=== PATIENT | female | born 1970 | race Caucasian/White ===

== ENCOUNTER 2024-07-17 05:10 | Observation (INO) ==
--- NOTE | 2024-06-22 15:08 | PAT Medication Instructions ---
Medication Instructions Date of Service June 22, 2024 Home Medications levothyroxine 88 mcg tablet (Levoxyl) 88 mcg PO QAM lorazepam 1 mg tablet (Ativan) 1 mg PO DAILY PRN anxiety Take morning of surgery With a small sip of water, OTHERWISE NOTHING TO EAT OR DRINK AFTER MIDNIGHT: levothyroxine 88 mcg tablet (Levoxyl) 88 mcg PO QAM lorazepam 1 mg tablet (Ativan) 1 mg PO DAILY PRN anxiety (if needed) Take evening before surgery lorazepam 1 mg tablet (Ativan) 1 mg PO DAILY PRN anxiety (if needed) Other Notes If you have any questions please call us at [phone] or [phone] or [phone] or [phone]
--- NOTE | 2024-07-03 10:16 | Anesthesiology Consultation ---
Date of Service July 03, 2024 Assessment & Plan (1) Encounter for pre-operative examination: - Infectious disease screening: Per assessment on 07/03/24: No known recent infectious disease contacts or current infectious disease symptoms. - Outpatient joint assessment: Pt currently scheduled for inpatient pathway. If surgeon requests review for outpatient joint pathway, patient is an acceptable candidate for outpatient joint program from anesthesia standpoint pending surgeon's office assessment that patient is motivated, has good support and completes [facility] Day [facility] Program preop requirements. Chart Review Chart Review: Acceptable Risk for Surgery and Patient seen in Pre Admission Testing Teaching & Discussion Pre-Anesthesia Teaching/Discussion Notes: Instructed NPO after midnight before surgery,except medications with 15 cc of water. Medication instructions provided according to the PAT guidelines. History Surgery Operation Date: 07/17/24 08:50 Proposed Procedures p Right Total Hip Arthroplasty - Ilia Rucker MD Height/Weight Height: 5 ft 3 in Weight: 73.3 kg Allergies Allergy/AdvReac Type Severity Reaction Status Date / Time Penicillins Allergy Intermediate Hives Verified 04/26/24 14:33 Medications Home Medications Medication Instructions Recorded Confirmed Last Taken levothyroxine 88 mcg tablet 88 mcg PO QAM 04/26/24 06/21/24 Unknown (Levoxyl) lorazepam 1 mg tablet (Ativan) 1 mg PO DAILY PRN anxiety 04/26/24 06/21/24 Unknown Past Medical History Medical History Anxiety Arthritis Hearing loss bilat hearing aids Hx of varicose veins Hypothyroidism Exercise / Class Metabolic Activity II 4-5 Yardwork/Stairs/Walk up hill (one FS: No CP, no SOB) Past Family History Family History Other No family history of adverse response to anesthesia Past Surgical History Surgical History History of esophageal dilatation 20 years ago Hx of colonoscopy Hx of esophagogastroduodenoscopy Hx of wisdom tooth extraction Past Anesthesia History No Hx of Anesthesia Complications and No Family Hx of Anesthesia Complications History of PONV No Hx of PONV and No Hx of Motion Sickness Social History Smoking Status: Former smoker Do You Dip or Chew Tobacco: No Smoking End Date: Quit 3-4 mos ago (hx tobacco use x approximately 40 years) Hx Alcohol Use: Yes alcohol intake frequency: a few times a week Hx Substance Use: Yes substance use type: marijuana (Daily marijuana edibles, occasional inhalation - advised protocol) Last Used Substance Other:: 06/20/24 Review of Systems Patient denies chest pain, shortness of breath, dyspnea on exertion, fever, chills, cough, wheezing. Physical Exam Vital Signs BP 150/87 P 76 TEMP 97.8 SP02 95%RA RESP 16 Physical Mildly decreased cervical extension range of motion. Full TMJ range of motion. TMD > 3.5 finger breaths Mallampati Score II Dentition: intact Lungs: clear throughout to auscultation Cardiac: regular rate and rhythm, no murmurs noted Spine: normal Carotid arteries: negative bruit Extremities: no LE edema Lab Results Anesthesia Preop Results Results Anesthesia Widget: WBC 7.44 K/ul (4.8-10.8) 07/03/24 Hgb 14.5 g/dl (12.0-16.0) 07/03/24 Hct 42.2 % (37.0-47.0) 07/03/24 Plt 149 K/uL (130-400) 07/03/24 Na 138 mmol/L (136-145) 07/03/24 K 3.8 mmol/L (3.5-5.1) 07/03/24 Cl 104 mmol/L (98-107) 07/03/24 CO2 27 mmol/L (21-32) 07/03/24 BUN 15 mg/dl (6-23) 07/03/24 Creat 0.70 mg/dl (0.6-1.2) 07/03/24 Glucose Level 83 mg/dl (70-99(Fasting)) 07/03/24 PT 10.6 Seconds (9.0-12.0) 07/03/24 PTT 29 Seconds (21-31) 07/03/24 INR 1.0 (0.9-1.1) 07/03/24 Blood Type O Positive 07/03/24 Antibody Screen NEGATIVE 07/03/24 Testing Electrocardiogram Date: 07/03/24 NSR with sinus arrhythmia at 67bpm. Chest X-Ray Date: 07/03/24 FINDINGS: Cardiomediastinal and hilar silhouettes are within normal limits. No pneumothorax, pleural effusion or airspace consolidation. Bones of the chest appear grossly intact. Degenerative changes of the shoulders and spine. IMPRESSION: No acute process of the chest.
--- NOTE | 2024-07-13 18:31 | History & Physical Report ---
Date of Service July 13, 2024 Assessment & Plan (1) Bilateral hip joint arthritis: 54-year-old female with advanced bilateral hip arthritis. She has failed conservative measures. She has been using really undesirable management techniques to try and manage her pain including alcohol and alternative medi cines. She is ready to have her hip fixed. Plan we talked about treatment plans. We can proceed with a right total hip replacement. I emphasized the importance of not using alcohol and other alter kaibab medicines at all in particular during the rehab phase. Worker proceed with right total hip replacement to the risks Mente this procedure explained include but not limited to a DVT PE infection neurological and vascular bleeding palm pain limb range of motion this is fairly her symptoms incomplete relief of symptoms excetra. Patient understands and desires to proceed. Informed consent was obtained. Will get a use aspirin for DVT prophylaxis. She is planned to be discharged to go home. Her sisters can assist in her care. She is likely jocelyn need her left hip done in the [id number] future. History of Present Illness Chief Complaint: . Bilateral hip pain discomfort and stiffness right side greater than the left. Primary Care Provider: Stanislaw Dover . The patient is a 54-year-old female whose had a several year history of increasing bilateral hip pain discomfort right side greater than the left. She has been just putting up with the pain for the most part. She has used alternative medicines and alcohol somewhat to manage her pain unfortunately. Pain has become more debilitating. She describes groin pain thigh pain. The right side is worse than the left. She is now like to proceed with right total hip replacement. Allergies Allergy/AdvReac Type Severity Reaction Status Date / Time Penicillins Allergy Intermediate Hives Verified 04/26/24 14:33 Home Medications Medication Instructions Recorded Confirmed Type levothyroxine 88 mcg tablet 88 mcg PO QAM 04/26/24 06/21/24 History (Levoxyl) lorazepam 1 mg tablet (Ativan) 1 mg PO DAILY PRN anxiety 04/26/24 06/21/24 History Past Med/Surg History Problem List Encounter for pre-operative examination Bilateral hip joint arthritis Medical History Hearing loss bilat hearing aids Arthritis Anxiety Hypothyroidism Hx of varicose veins Surgical History History of esophageal dilatation 20 years ago Hx of wisdom tooth extraction Hx of esophagogastroduodenoscopy Hx of colonoscopy Family History Other No family history of adverse response to anesthesia Social History Smoking Status: Former smoker Tobacco Type: Cigarettes Second Hand Exposure: No; Do You Dip or Chew Tobacco: No; Hx Alcohol Use: Yes Hx Substance Use: Yes Last Used Substance Other:: 06/20/24 Preferred Language: Khmer Communication Ability: Effective Dark Room Attendant Required: No Beliefs That Will Affect Care: None Current Living Situation: Spouse Feels Safe at Home: Yes Assistive Devices: Glasses and Hearing Aid - Bilateral Review of Systems All systems reviewed & are unremarkable except as noted in HPI & below. Physical Exam . Physical examination was a pleasant middle-age female. She looks to be in reasonably good health. Examination of both [id number]-fos patient walks with a bit of a waddling gait. She clearly walks like she got hip pain. Her leg marilu gths are pretty equal. She got stiffness in both hips and pain with attempted internal rotation. She is neurologically intact. No knee effusions. No particular pain with straight leg raising. Constitutional WD/WN, vitals as above Neck trachea midline, no thyromegaly Respiratory normal respiratory effort, lungs clear to auscultation Cardiovascular RRR, no murmur, no edema Gastrointestinal (Abdomen) normal bowel sounds, soft, nontender, no hepatosplenomegaly Results & Data Results & Data Laboratory Results . Diagnostic Findings . X-rays of both hips reveal advanced bilateral hip DJD right side a bit worse than the left.*Complete loss of the superior joint space. She got osteophytes of the femoral head and acetabulum. The right side is a bit worse than the left. PG Care Time/CCT Total # of Minutes Spent Total Time Spent with Patient: Total time spent is greater than 50% in coordination of care (as documented) at patient's floor/unit and/or counseling patient: Coding Level of Care Code None Diagnoses Bilateral hip joint arthritis M16.0
[~2024-07-17 05:10] MED LIST: ALLERGY Noted to ORDERED Medication SCH
[2024-07-17] MEDS: LR 60ML/HR IV SCH (05:49)
[2024-07-17] MEDS: FAMOTIDINE 20 MG TAB PO SCH (05:49)
[2024-07-17] MEDS: METOCLOPRAMIDE HCL 10 MG TABLET PO SCH (05:49)
[2024-07-17] MEDS: CeleBREX 200 MG CAP PO SCH (05:49)
[2024-07-17] MEDS: ACETAMINOPHEN 500 MG TAB PO SCH ×2 (05:49→15:46)
[2024-07-17] MEDS: LR 500ML BOLUS, THEN 15ML/HR IV SCH (05:58)
[2024-07-17] MEDS ORDERED: ROPIVACAINE 0.5% 5 MG/ML 30 ML VIAL ONE (06:15)
[2024-07-17] MEDS ORDERED: fentaNYL citrate PF 100 MCG/2 ML VIAL ONE (06:19)
[2024-07-17] MEDS ORDERED: MIDAZOLAM HCL 1 MG/ML 2ML VIAL ONE ×2 (06:19)
[2024-07-17] MEDS ORDERED: DexMEDEtomidine HCL IV 100 MCG/ML VIAL IV ONE (06:20)
[2024-07-17] MEDS ORDERED: MoRPHine SULFATE PF 1 MG/ML 10 ML AMP/VIAL ONE (06:24)
[2024-07-17] MEDS ORDERED: LIDOCAINE 2% 2 ML VIAL/AMP(20MG/ML) INFIL ONE (06:26)
[2024-07-17] MEDS ORDERED: PROPOFOL IV EMULSION 10 MG/ML 20 ML VIAL IV ONE (06:26)
[2024-07-17] MEDS ORDERED: HYDROmorphone INJ 1 MG/ML SYRINGE IV PRN (06:38)
[2024-07-17] MEDS ORDERED: fentaNYL citrate PF 100 MCG/2 ML VIAL IV PRN (06:38)
[2024-07-17] MEDS ORDERED: ePHEDrine sulfate 50 MG/ML AMP IV PRN ×2 (06:38→06:51)
[2024-07-17] MEDS ORDERED: ATROPINE SULFATE 0.1 MG/ML 10ML SYR IV PRN (06:38)
--- NOTE | 2024-07-17 06:41 | History & Physical Bridge Note ---
Date of Service July 17, 2024 History & Physical Bridge Note I have examined the patient, reviewed the History & Physical and in the interval since the performance of the History & Physical I have noted the following changes of clinical significance: no changes noted
[2024-07-17] MEDS: TRANEXAMIC ACID 1,000 MG **IV Pre-op IV SCH (06:44)
[2024-07-17] MEDS ORDERED: NALOXONE HCL 0.4 MG/1 ML VIAL/CARP IV PRN ×2 (06:51→10:12)
[2024-07-17] MEDS ORDERED: NALBUPHINE HCL INJ 10 MG/ML AMP IV PRN (06:51)
[2024-07-17] MEDS ORDERED: LACTATED RINGER'S 500 ML IV PRN (06:51)
[2024-07-17] MEDS ORDERED: NALOXONE HCL 0.08 MG in SYRINGE 1.8 ML IV PRN (06:51)
[2024-07-17] MEDS ORDERED: NALOXONE HCL 1 MG in SODIUM CHLORIDE 0.9% 1,000 ML IV PRN (06:51)
[2024-07-17] MEDS ORDERED: MoRPHine SULFATE 2 MG/ML CARP IV PRN (06:51)
[2024-07-17] MEDS ORDERED: KETOROLAC 30 MG/ML VIAL IV PRN (06:51)
[2024-07-17] MEDS ORDERED: diphenhydrAMINE 50 MG/ML VIAL IV PRN (06:51)
[2024-07-17] MEDS ORDERED: HYDROmorphone INJ 0.5 MG/0.5 ML SYR IV PRN (06:51)
[2024-07-17] MEDS: ceFAZolin 2000MG 2,000 MG/15 ML SYR IV SCH (06:59)
[2024-07-17] MEDS ORDERED: NO NARCOTICS OR SEDATIVES SCH (07:00)
[2024-07-17] MEDS ORDERED: DC INTRASPINAL MORPHINE SCH (07:00)
[2024-07-17] MEDS ORDERED: ePHEDrine sulfate 50 MG/ML AMP ONE (07:29)
[2024-07-17] MEDS: BUPIVACAINE/EPINEPHRINE 0.5% MPF 1:200,000 30 ML VIAL ONE (07:53)
--- NOTE | 2024-07-17 08:32 | Operative Report ---
PG Post Operative Report Pre & Post Diagnosis Operation Date: 07/17/24 07:00 Pre-Op Diagnosis: Right Hip Osteoarthritis Post-Op Diagnosis: Right Hip Osteoarthritis I identified the patient and participated in the time-out.: Yes Procedure Operation Date: 07/17/24 07:00 Actual Procedures p Right Total Hip Arthroplasty, Uncemented(Right) - Ilia Rucker MD Surgeon Ilia Rucker MD Florist Designer Francesco Leyva PA-C Estimated Blood Loss 200 Findings Consistent with Post-Op Diagnosis Specimens Right femoral head sent for pathology. Anesthesia Type Spinal MAC Complications none Disposition Accompanied Patient To Recovery: No Indications Patient is a 54-year-old female has had a several year history of increasing bilateral hip pain discomfort describes gotten worse over time. She has been through extensive conservative treatment just trying to manage this. Has become more unmanageable and more difficult with time. Having severe pain. She is actually sought out alternative management strategies which were unsuccessful. As she is now would like to proceed with total hip arthroplasty. The right side was bothering more than the left. Description of Procedure Operative implants consist of: 1. Biomet G7 size 50 mm acetabular shell. 2. 6.5 cancellous acetabular screws 1 of 35 mm length and 1 of 25 mm length. 3. [place] hole automobile racer. 4. Highly cross-linked polyethylene liner with a 50 mm outer diameter 32 mm inner diameter. 5. DePuy Karaya size 10 KLA femoral stem. 6. +5/32 mm ceramic articular ball. The patient was taken the op room, identified, placed on the operating table in the supine position. All contact areas were appropriately padded. IV antibiotics tried by anesthesia team. A spinal anesthetic had been implemented in the holding area. Bush catheter was placed in sterile fashion. The patient then placed in the left lateral cubitus position. An axillary roll was placed. Distal Birkett position was used for positioning. The right hip and leg were then prepped and draped in usual sterile fashion. A posterolateral approach to the right hip was then performed through a curvilinear incision centered over the greater trochanter. Sharp dissection was carried through subcutaneous tissue down to level the IT band gluteal fascia but the IT band gluteal fascia incised longitudinally in line with skin incision. The underlying greater bursa was excised. The piriformis and external rotators were then taken off the posterior aspect of the hip as a single layer. Great care was taken throughout the procedure protect the sciatic nerve at all times. Hip was internally rotated and dislocated. A femoral neck osteotomy cut was made with Final Cut 10 mm above the lesser trochanter. Femoral head was removed and sent for pathology. The femur was retracted anteriorly. Attention drawn the acetabulum. The acetabular labrum was excised. The pulmonary fat was excised. Sequential reaming the acetabulum was then performed again with size 43 and progressing up to 49. I reamed a little bit with a 50 reamer and then placed a 50 mm cup in about 40 degrees lateral opening and 20 degrees of anteversion. It was fixed with two 6.5 screws. Some anterior osteophytes removed. Trial liner was placed. Attention drawn the femur. The proximal femur then with a [employer] cutter followed by canal finder. I then broached beginning the size 8 and progressed up to a 10. We are able to get the tendon but it was pretty tight. We then trialed the hip. The +5 articular ball provided full stability. I thought we may have length or just a little bit but she has severe arthritis in the other side we will get have to replace that hip in the future. We elected to leg. Just slightly. Hip was fully stable. I would like to place his implants. All trial implants were removed. An apex hole automobile racer was placed. Highly cross-linked polyethylene liner was placed. Due to her young age we elect to use a 32 head in order to maximize her polyethylene and the limiter need for likely revision for poly wear. A size 10 KLA femoral stem was impacted in position. I could not get this the whole way down to the calcar cut was about 4 mm Prall. Did not advance any further and I did not want a risk of fracturing the femur. A +5/32 mm ceramic articular ball was placed. Hip was located once again found to be stable. Once again she was probably a little bit long on this leg compared to the opposite side but she is got pretty severe arthritis in the opposite side. Attention drawn toward closing. The wound was irrigated compels pulsatile lavage solution. I injected locally with 60 cc of half percent Marcaine with epinephrine. The posterior capsule and external rotators then repaired through drill holes in the posterior trochanter with #2 Tycron suture. The IT band gluteal fascia was then closed with #1 PDS suture running fashion the subcutaneous tissues then closed with 2 layers the deep layer #2 Vicryl suture in a buried interrupted fashion the subcutaneous tissues with 2-0 Dexon suture in a buried interrupted fashion. Skin was closed skin alicia. Leg was then cleaned and dried. We used a Prevena VAC dressing due to the fairly thick soft tissue subcutaneous envelope. The patient then transferred to the recovery room in stable condition. Patient tolerated procedure well and no complications. Francesco Leyva, my physician assistant front end manager, was present for the entire procedure. His assistance was essential and required for appropriate patient positioning, prepping and draping, surgical exposure, performing the technical details of the operation, placement the implants, closure of the wound, and placement of the sterile bandage. I attest to the content of the Intraoperative Record and any orders documented therein. Any exceptions are noted below.
--- NOTE | 2024-07-17 08:47 | Anesthesiology Progress Note ---
Date of Service July 17, 2024 Anesthesia Post Procedure Vital Signs Vital Signs: Temp Pulse Pulse Resp BP Pulse Ox O2 Del Method 07/17/24 08:40 80 23 105/52 L 99 Room Air 07/17/24 08:30 79 20 126/67 100 Oxymask 07/17/24 08:24 36.5 C 85 14 120/66 100 Oxymask 07/17/24 05:39 36.9 C 87 20 164/83 H 98 Room Air O2 Flow Rate 07/17/24 08:40 07/17/24 08:30 6 07/17/24 08:24 6 07/17/24 05:39 Pain Intensity Right Hip: Pain Intensity: 10 Transfer of Care Handoff Completed per policy Notes Mental Status: alert / awake / arousable and participated in evaluation Patient Amnestic to Procedure: Yes Nausea / Vomiting: adequately controlled Pain: adequately controlled Airway Patency, RR, SpO2: stable & adequate BP & HR: stable & adequate Hydration State: stable & adequate Neuraxial Anesthesia: was administered and sensory block is resolving Anesthetic Complications: no major complications apparent and Pt Satisfied with anesthetic care
--- NOTE | 2024-07-17 08:51 | XRay Report ---
XR hip 1V RT w pelvis HISTORY: 54 years-old Female IN PACU - Post Surgical right hip arthroplasty COMPARISON: 04/26/2024 TECHNIQUE: AP view of the pelvis with crosstable lateral view of the right hip FINDINGS: Severe left hip Evaro arthritis redemonstrated. Satisfactory alignment of the right hip arthroplasty . Lateral skin alicia with expected postoperative soft tissue swelling and deep tissue air. IMPRESSION: Right hip arthroplasty with expected postoperative findings. ACT 112: Negative or not required by law. The above report was generated using voice recognition software. It may contain grammatical, syntax o r spelling errors. Electronically signed by: Ming Hodge M.D. 07/17/2024 8:49 AM
[2024-07-17] MEDS: ONDANSETRON INJ 2 MG/ML 2 ML VIAL IV PRN ×2 (09:53→16:36)
[2024-07-17] MEDS ORDERED: ONDANSETRON INJ 2 MG/ML 2 ML VIAL IV PRN (10:12)
[2024-07-17] MEDS ORDERED: ALUMINUM/MAGNESIUM SUSP 30 ML UDC PO PRN (10:12)
[2024-07-17] MEDS ORDERED: bisacodyL 10 MG SUPP PR PRN (10:12)
[2024-07-17] MEDS ORDERED: oxyCODONE HCL IR 5 MG TAB (IMMEDIATE RELEASE) PO PRN (10:12)
[2024-07-17] MEDS ORDERED: LORazepam 1 MG TAB PO PRN (10:12)
[2024-07-17] MEDS ORDERED: SENNA 8.6 MG TAB PO SCH (10:12)
[2024-07-17] MEDS ORDERED: MAGNESIUM HYDROXIDE SUSP 30 ML UDC PO PRN (10:12)
[2024-07-17] MEDS ORDERED: diphenhydrAMINE Capsule 25 MG CAP PO PRN (10:12)
[2024-07-17] MEDS: LEVOTHYROXINE SODIUM 88 MCG TABLET PO SCH (11:08)
[2024-07-17] MEDS: ASPIRIN 81 MG ECTAB PO SCH (11:08)
[2024-07-17] MEDS: MULTIVITAMIN TAB PO SCH (11:09)
[2024-07-17] MEDS: METOCLOPRAMIDE HCL INJ 5 MG/ML 2 ML VIAL IV PRN (11:16)
[2024-07-17] MEDS: MoRPHine SULFATE PF 1 MG/ML 10 ML AMP/VIAL INT SPINAL ONE (11:40)
[2024-07-17] MEDS: SODIUM CHLORIDE 0.9% 1,000 ML IV SCH ×2 (11:40→12:06)
[2024-07-17] MEDS: DOCUSATE SODIUM 100 MG CAP PO SCH (12:06)
[2024-07-17] MEDS: TRANEXAMIC ACID / 0.7% NACL 1,000 MG/100 ML BAG IV SCH (16:21)
[2024-07-17] MEDS: ASCORBIC ACID 500 MG TAB PO SCH (16:59)
[2024-07-17] MEDS: ceFAZolin 1000MG 1,000 MG/7.5 ML SYR IV SCH (17:01)
[2024-07-17] MEDS: KETOROLAC 30 MG/ML VIAL IV SCH (17:59)
[2024-07-17] MEDS: SENNA 8.6 MG TAB PO SCH (20:34)
[2024-07-18 06:14] LABS: Basophils # (auto) 0.03 K/uL (0.00-0.20); Basophils % (auto) 0.4 %; Eosinophils # (auto) 0.07 K/uL (0.00-0.50); Eosinophils % (auto) 0.8 %; Hematocrit (blood only) 33.3 % (37.0-47.0); Hemoglobin 11.5 g/dl (12.0-16.0); Immature Granulocytes # (auto) 0.03 K/uL (0.01-0.20); Immature Granulocytes % (auto) 0.4 %; Mean Corpuscular Hemoglobin 30.6 pg (25.0-34.0); Mean Corpuscular Hgb Conc 34.5 g/dL (32.0-36.0); Mean Corpuscular Volume 88.6 fL (80.0-100.0); Monocytes # (auto) 0.71 K/uL (0.11-0.59); Monocytes % (auto) 8.5 %; Neutrophils # (auto) 5.96 K/uL (1.40-6.50); Neutrophils % (auto) 70.9 %; Platelet Count 119 K/uL (130-400); RDW Coefficient of Variation 12.3 % (11.5-14.5); RDW Standard Deviation 39.5 fL (36.4-46.3); Red Blood Count 3.76 M/uL (4.20-5.40)
[2024-07-18 06:24] LABS: BUN Creatinine Ratio 16.1 (10-20); Calcium 8.6 mg/dl (8.6-10.3); Creatinine Clr Calc Pharmacy 107.5 ml/min; Est GFR (African American) 120.8 ml/min; Est GFR (Non-African American) 104.2 ml/min
--- NOTE | 2024-07-18 06:43 | Orthopedic Progress Note ---
Date of Service July 18, 2024 Assessment & Plan (1) S/P total right hip arthroplasty: Doing well POD #1 from Right brittnee. Continue prevena vac dressing at home Pain well controlled. PT/OT wbat and hip precautions D/C planning: home with home health today if she does well with PT dvt prophylaxis: teds, scd's, aspirin Subjective . 54 year old patient POD #1 from right brittnee. Had some vomiting yesterday but feeling much better today. No pain with her hip. No other complaints. Review of Systems All systems reviewed & are unremarkable except as noted in HPI & below. Physical Exam .alert and oriented. NAD VSS Right hip/leg: Dressing intact and functioning. Leg well aligned. Hip located. NVi. Able to DF/PF HGB 11.5 Results & Data Results & Data Laboratory Results . Diagnostic Findings . PG Care Time/CCT Total # of Minutes Spent Total Time Spent with Patient: Total time spent is greater than 50% in coordination of care (as documented) at patient's floor/unit and/or counseling patient: Coding Level of Care Code 36776 Post Operative Follow-Up Diagnoses S/P total right hip arthroplasty Z96.641
[2024-07-18 08:03] VITALS: BP 159/84; PULSE 83; RESP 16; TEMP 98.6; O2SAT 99
[2024-07-18] MEDS: dexAMETHasone 10 MG in SYRINGE 0 ML IV SCH (08:20)
== END 2024-07-18 11:26 | disposition home health service (06) ==
LOC: PACUINP 05:10 → ASU 05:10 → 3E 12:03